=== PATIENT | female | born 1985 | race Caucasian/White ===

== ENCOUNTER 2021-08-23 11:04 | Outpatient (REF) | payer OTHER, SELFPAY ==
[2021-08-24 09:26] LABS: BV Int Neg Control Negative (Negative); BV Int Pos Control Positive (Positive)
[2021-08-26 06:22] LABS: HPV mRNA E6/E7 rflx Not Detected (Not Detected)
== END 2021-08-23 11:05 | disposition home or self-care (01) ==
LOC: HO.LAB 11:04
PROVIDERS: Visit Provider Advanced Practice Midwife
DX: Z01.419 Encounter for gynecological examination (general) (routine) without abnormal findings (principal); Z11.51 Encounter for screening for human papillomavirus (HPV); Z20.2 Contact with and (suspected) exposure to infections with a predominantly sexual mode of transmission; Z97.5 Presence of (intrauterine) contraceptive device
CPT/HCPCS: 87480; 87510; 87624; 87660; 88142

== ENCOUNTER 2021-10-12 10:23 | Outpatient (REF) | payer OTHER, SELFPAY ==
--- NOTE | ~2021-10-12 | MM_ITS ---
EXAMINATION: MM SCREENING DIGITAL BREAST TOMOSYNTHESIS, BILATERAL CLINICAL INFORMATION: Screening. Asymptomatic. Age 36. No prior breast imaging. Family history breast cancer, mother, age of diagnosis not provided. The lifetime risk of breast cancer based on the Tyrer-Cuzick Model is 22%. COMPARISON: None (current study represents initial baseline exam). TECHNIQUE: Digital breast tomosynthesis is performed in both the craniocaudal and mediolateral oblique views along with computer-aided detection (CAD). Synthesized 2D images are generated from the tomosynthesis. FINDINGS: There are scattered areas of fibroglandular density (ACR BI-RADS breast composition Category b). Breast tissue composition borders on heterogeneously dense. There are no significant masses, abnormal calcifications, or other abnormalities. The axilla and skin contours are unremarkable. MM/MM tomosynthesis screening BI IMPRESSION: No mammographic evidence of malignancy. ASSESSMENT: BI-RADS 1: Negative RECOMMENDATION: -Routine annual mammography screening. -The lifetime risk of breast cancer based on the Tyrer-Cuzick Model is 22%. Additional annual adjunct screening with breast MRI may be of benefit in women with a risk score of 20% or greater. This patient's information was entered into a reminder system with a target due date for their next mammogram.
== END 2021-10-12 10:24 | disposition home or self-care (01) ==
LOC: HO.MAMMO 10:23
PROVIDERS: PCP Physician Assistant; Visit Provider Advanced Practice Midwife
DX: Z12.31 Encounter for screening mammogram for malignant neoplasm of breast (principal)
CPT/HCPCS: 77063; 77067

== ENCOUNTER 2021-12-31 07:02 | Outpatient (REF) | payer OTHER, SELFPAY ==
[2021-12-31 07:36] LABS: Hematocrit 41.6 % (37.0-47.0); Hemoglobin 14.1 g/dl (12.0-16.0); Mean Corpuscular HGB Conc 33.9 g/dl (31.0-35.0); Mean Corpuscular Hemoglobin 29.9 pg (27.0-33.0); Mean Corpuscular Volume 88.1 fL (80.0-98.0); Mean Platelet Volume 10.6 fL (9.4-12.3); Platelet Count 265 X10*3/uL (160-400); Red Blood Count 4.72 X10*6/uL (4.20-5.50); White Blood Count 7.4 X10*3/uL (4.8-10.8)
[2021-12-31 07:59] LABS: Alanine Aminotransferase 10 U/L (0-31); Albumin Level 4.2 g/dL (3.5-5.0); Alkaline Phosphatase 30 U/L (39-117); Anion Gap 12 (12-20); Aspartate Amino Transferase 13 U/L (5-31); Bilirubin Total 0.4 mg/dL (0.0-1.0); Blood Urea Nitrogen 14 mg/dL (9-16); Calcium 9.1 mg/dL (8.4-10.2); Carbon Dioxide 26 mmol/L (22-29); Chloride 106 mmol/L (96-108); Estimated Glomerular Filt Rate > 60; Glucose Fasting 94 mg/dL (60-99); Potassium 4.6 mmol/L (3.3-5.1); Sodium 139 mmol/L (135-145); Total Protein 6.7 g/dL (6.5-8.0)
[2021-12-31 08:22] LABS: TSH reflex Free T4 2.26 uIU/mL (0.32-4.0)
== END 2021-12-31 07:03 | disposition home or self-care (01) ==
LOC: HO.LAB 07:02
PROVIDERS: PCP Physician Assistant; Visit Provider Physician Assistant
DX: Z13.29 Encounter for screening for other suspected endocrine disorder (principal)
CPT/HCPCS: 36415; 80053; 84443; 85027

== ENCOUNTER 2022-10-31 10:04 | Outpatient (REF) | payer OTHER, SELFPAY ==
--- NOTE | ~2022-10-31 | MM_ITS ---
EXAMINATION: MM SCREENING DIGITAL BREAST TOMOSYNTHESIS, BILATERAL CLINICAL INFORMATION: Screening. Asymptomatic. The lifetime risk of breast cancer based on the Tyrer-Cuzick Model is 20%. COMPARISON: Mammography: 10/12/2021 (baseline) TECHNIQUE: Digital breast tomosynthesis is performed in both the craniocaudal and mediolateral oblique views along with computer-aided detection (CAD). Synthesized 2D images are generated from the tomosynthesis. FINDINGS: There are scattered areas of fibroglandular density (ACR BI-RADS breast composition Category b). There are no significant masses, abnormal calcifications, or other abnormalities. Parenchymal pattern is similar to prior studies. There is no developing density or architectural abnormality. Breast tissue composition borders on heterogeneously dense. The axilla and skin contours are unremarkable. No significant changes. MM/MM tomosynthesis screening BI IMPRESSION: No mammographic evidence of malignancy. ASSESSMENT: BI-RADS 1: Negative RECOMMENDATION: Routine annual mammography screening. This patient's information was entered into a reminder system with a target due date for their next mammogram.
== END 2022-10-31 10:05 | disposition home or self-care (01) ==
LOC: HO.MAMMO 10:04
PROVIDERS: PCP Physician Assistant; Visit Provider Physician Assistant
DX: Z12.31 Encounter for screening mammogram for malignant neoplasm of breast (principal)
CPT/HCPCS: 77063; 77067

== ENCOUNTER 2023-02-01 15:18 | Outpatient (AMB) | payer OTHER, SELFPAY ==
--- NOTE | 2023-02-01 15:19 | A.OFFPC_ITS ---
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 Accompanied by: Self / Same As Patient Allergies No Known Allergies [No Known Allergies*] Allergy (Verified 02/01/23 15:29) Medication List - Last Reconciled 02/01/23 by Kevin Ingram PA-C No Known Home Meds Tobacco use date assessed: 02/01/23 Dental Screening Dental Screen Date: 02/01/23 Did you have a dental visit in the last 12 months?: Yes Did you have a dental problem in the last 6 months where you did not have access to dental care?: No Was dental information given to patient?: Patient has dentist HPI Annual Exam HPI Details Patient is a 37-year-old female here today for routine annual physical.? Patient does not have any past medical history with the exception of a family history of breast cancer. Concern--> patient is concerned about her weight as she has gained over the last year. She attributes some of this due to grief from losing her father and eating habits. She also reports having a family history of hypothyroidism I would like her thyroid checked. Mammogram: Done in October of 2022 BI-RADS 1 Pulmonary Fellow:? Followed by a investment consultant, has had a PAP ( 08/2021) Vaccines: UTD with COVID vacc, did get FLu vaccine, UTD with Tdap. PFSH Medical History Hx of trauma Situational anxiety Family History Father Depression Chronic mental illness AAA (abdominal aortic aneurysm) Mother Diabetes mellitus Breast cancer Depression Chronic mental illness Cancer Maternal Grandmother Diabetes mellitus Breast cancer Maternal Grandfather Myocardial infarct Paternal Grandmother Myocardial infarct Social History Housing: House Alcohol intake: current Alcohol intake frequency: holidays/special occasions only Patient Tobacco Use Status: Never used Tobacco e-Cigarette/Vaping Use: Never Used service: No Current occupation: CORPORATE MANAGER M[employer] Gender identity: Female Cognitive needs: No Hearing needs: No Vision needs: No Female Reproductive History Menstrual Age of Menarche: 13 Questionnaire PHQ-9 Over the last 2 weeks, how often have you been bothered by any of the following problems? 1. Little interest or pleasure in doing things: not at all 2. Feeling down, depressed, or hopeless: not at all 3. Trouble falling or staying asleep, or sleeping too much: not at all 4. Feeling tired or having little energy: not at all 5. Poor appetite or overeating: not at all 6. Feeling bad about yourself - or that you are a failure or have let yourself or your family down: not at all 7. Trouble concentrating on things, such as reading the newspaper or watching television: not at all 8. Moving or speaking so slowly that other people could have noticed. Or the opposite - being so fidgety or restless that you have been moving around a lot more than usual: not at all 9. Thoughts that you would be better off or of hurting yourself in some way: not at all Total score: 0 Depression Screening Interpretation: Negative 74581 - PHQ-9 Billing: Yes Source: Developed by Drs. Anil King, Greta Abbott, Leo Turner and colleagues, with an educational yoly from [employer] Thrive Questionnaire Date Thrive assessed: 02/01/23 I am a: Patient What is your living situation today?: I have a steady place to live Within the past 12 months, did the food you bought not last and you didn't have the money to get more?: Never true Within the past 12 months, did you worry whether your food would run out before you got money to buy more?: Never true Do you have trouble paying for medicines?: No Do you have trouble getting transportation to medical appointments?: No Do you have trouble paying your heating and electricity bill?: No Do you have trouble taking care of your child, family member or friend?: No Do you have trouble with day-to-day activities such as bathing, preparing meals, shopping, managing finances, etc.?: No Are you currently unemployed and looking for a job?: No Are you interested in more education?: No Please select the resources that you would like help with: None Currently or been in a relationship where the following occur: no concerns reported LOUIE-7 AMB Questionnaire LOUIE-7 Date LOUIE - 7 assessed: 02/01/23 Feeling nervous, anxious, or on edge: 0 = Not at all Not being able to stop or control worryin = Not at all Worrying too much about different things: 0 = Not at all Trouble relaxin = Not at all Being so restless that it is hard to sit still: 0 = Not at all Becoming easily annoyed or irritable: 0 = Not at all Feeling afraid as if something awful might happen: 0 = Not at all Total LOUIE-7 score (0-4 normal; 5-9 mild; 10-14 moderate; 15-21 severe): 0 Source: Developed by Drs. Anil King, Greta Abbott, Leo Turner and colleagues, with an educational yoly from [employer] LOUIE-7 Assessment Billing LOUIE-7 Assessment Tool: LOUIE-7 Assessment 34130 Review of Systems Const Denies body aches, Denies chills, Denies excessive sweating, Denies fatigue, Denies fever(s) and Denies headache(s) Eyes Denies blurry vision ENT Denies dysphagia, Denies vertigo, Denies dizziness, Denies headache(s), Denies hearing loss and Denies tinnitus Card Denies chest pain, Denies chest pain with activity, Denies syncope, Denies irregular heart rhythm and Denies dyspnea Resp Denies chest congestion, Denies cough, Denies hemoptysis, Denies dyspnea and Denies wheezing GI Denies abdominal pain, Denies melena, Denies hematochezia, Denies coffee ground emesis, Denies dysphagia, Denies diarrhea, Denies nausea and Denies vomiting Denies urinary frequency, Denies dysuria, Denies urinary hesitancy and Denies urinary urgency Musc Denies arthralgias, Denies limited range of motion, Denies muscle cramps and Denies muscle weakness Skin/Breast Denies rash and Denies skin ulcer Neuro Denies Abnormal speech present, Denies confusion, Denies vertigo, Denies dizziness, Denies syncope, Denies headache(s), Denies memory loss and Denies seizure-like activity Psych Denies anxiety, Denies confusion, Denies depression, Denies memory loss, Denies panic attacks and Denies paranoia Endo Denies excessive sweating, Denies fatigue, Denies flushing, Denies polydipsia and Denies polyuria Aller/Immun Denies wheezing Physical exam (Primary Care) Vital Signs: Last Vital Signs Pulse 69 02/01/23 15:21 BP 110/62 02/01/23 15:21 Pulse Ox 99 02/01/23 15:21 Oxygen Delivery Method Room Air 02/01/23 15:21 BMI result Body Mass Index 29.1 Tobacco/Smoking Status: Tobacco use Status Tobacco use date assessed 02/01/23 02/01/23 15:24 Patient Tobacco Use Status Never used Tobacco 02/01/23 15:24 e-Cigarette/Vaping Use Never Used 02/01/23 15:24 PHQ-9: PHQ-9 Score PHQ-9: Total score 0 02/01/23 15:29 Depression Screening Interpretation: Negative Thrive Assessment: Date of Thrive Assessment Date Thrive assessed 02/01/23 02/01/23 15:24 Currently or been in a relationship where the following occur: no concerns reported Const Other: OVERWEIGHT General: cooperative, comfortable, no acute distress, alert and awake; No confusion Orientation/consciousness: oriented to person, oriented to place, patient oriented x3 and No confusion HENMT Head: Yes normocephalic Ears: external ears normal and TM's normal bilaterally Face and sinus: No sinus tenderness Mouth: Normal oral and palatal mucosa present and tongue normal Teeth and gingiva: dentition normal and gingiva normal Throat: Yes posterior oropharynx normal, Yes tonsils normal and Yes uvula midline Eyes Conjunctivae: conjunctivae normal Sclerae: sclerae normal Pupils: Equal, round and reactive pupils present EOM: EOMs intact bilaterally Direct Ophthalmoscopy: No no photophobia Neck Neck: Yes no lymphadenopathy, No tender and Yes no JVD Thyroid: Thyroid normal Carotids: no bruits Chest Chest palpation & inspection: no tenderness Resp Effort & Inspection: normal respiratory effort, no audible wheezes, not labored and no stridor Auscultation: no crackles, no rales, no rhonchi and no wheezes Cardio Jugular venous distension: no JVD Rate: regular rate, not bradycardic and not tachycardic Rhythm: regular rhythm Bruits: no carotid bruits Peripheral pulses: Peripheral pulses 2+ throughout GI Inspection: Yes normal to inspection, No abdominal wall ecchymosis and No visible herniation Palpation (GI): Soft to palpation, nontender, no guarding, not rigid and No hepatosplenomegaly present Auscultation: normoactive bowel sounds General: Yes no CVA tenderness Back/Spine/Pelvis Back: no CVA tenderness and No back tenderness Cervical Spine: cervical ROM normal Thoracic/Lumbar Spine: thoracic and lumbar spine normal to inspection, straight leg raise negative bilaterally, No thoraco-lumbar ROM limited and No lumbar spinal tenderness Skin Lesions: no lesions Rashes: no rashes Wounds: no wounds Neuro General: oriented to person, oriented to place, patient oriented x3, CN's II-XI intact bilaterally and No confusion Cranial nerves: Yes Equal, round and reactive pupils present and Yes Normal accommodation reflex present Cognition (Neuro): normal cognition Speech: No Abnormal speech present Gait exam (Neuro): Normal gait present Motor exam (neuro): 5/5 motor strength present throughout Extrem Right upper extremity: full ROM; no cyanosis Left upper extremity: full ROM; no cyanosis Right lower extremity: no edema Left lower extremity: no edema Psych Appearance: grossly normal Mental Status: mental status grossly normal Affect: normal affect Attitude: cooperative Thought process: Normal thought process present Assessment and Plan Assessment & Plan (1) Annual physical exam: Code(s): Z00.00 - Encounter for general adult medical examination without abnormal findings (2) Screening for diabetes mellitus (DM): Code(s): Z13.1 - Encounter for screening for diabetes mellitus (3) Family history of hypothyroidism: Code(s): Z83.49 - Family history of other endocrine, nutritional and metabolic diseases Plan: Patient reports a family history hypothyroidism. Reports her mom was diagnosed with both thyroid is med is 35. She is concerned about her thyroid would like it checked. (4) Overweight (BMI 25.0-29.9): Code(s): E66.3 - Overweight Plan: Patient is concerned about her weight as she has gained 3 lb since last annual physical. She does report not eating much in the morning time needs bigger meals in the afternoon. She does understand she needs to change the pattern of eating. She does report working out 3 to 4 times a week and eating fairly healthy. She is concerned she has a hormonal issue causing her to gain weight. Orders: Orders Comprehensive Mobile. Panel Fast 02/03/23 Z13.1 - Encounter for screening for diabetes mellitus TSH reflex Free T4 02/03/23 Z83.49 - Family history of other endocrine, nutritional and metabolic diseases Complete Blood Count no Diff 02/03/23 Z13.1 - Encounter for screening for diabetes mellitus Coding Level of Care Code Est Pt Prev Care [id number]([id number]) Diagnoses Annual physical exam Z00.00 Screening for diabetes mellitus (DM) Z13.1 Family history of hypothyroidism Z83.49 Overweight (BMI 25.0-29.9) E66.3 Additional Codes LOUIE-7 Assessment Billing - LOUIE-7 Assessment Tool: LOUIE-7 Assessment [id number] ([id number])
[2023-02-01 15:21] VITALS: BP 110/62; PULSE 69; O2SAT 99; BMI 29.1
== END 2023-02-01 15:52 | disposition home or self-care (01) ==
PROVIDERS: PCP Physician Assistant; Visit Provider Physician Assistant
DX: Z00.00 Encounter for general adult medical examination without abnormal findings (principal); Z13.1 Encounter for screening for diabetes mellitus; Z83.49 Family history of other endocrine, nutritional and metabolic diseases; E66.3 Overweight
CPT/HCPCS: 99395

== ENCOUNTER 2023-02-03 07:11 | Outpatient (REF) | payer OTHER, SELFPAY ==
[2023-02-03 07:35] LABS: Hematocrit 44.2 % (37.0-47.0); Hemoglobin 14.9 g/dl (12.0-16.0); Mean Corpuscular HGB Conc 33.7 g/dl (31.0-35.0); Mean Corpuscular Hemoglobin 29.8 pg (27.0-33.0); Mean Corpuscular Volume 88.4 fL (80.0-98.0); Mean Platelet Volume 10.5 fL (9.4-12.3); Platelet Count 262 X10*3/uL (160-400); Red Cell Distribution Width 11.9 % (11.0-16.0); White Blood Count 6.7 X10*3/uL (4.8-10.8)
[2023-02-03 08:01] LABS: Alanine Aminotransferase 10 U/L (0-31); Albumin Level 4.2 g/dL (3.5-5.0); Alkaline Phosphatase 29 U/L (39-117); Anion Gap 10 (12-20); Aspartate Amino Transferase 12 U/L (5-31); Bilirubin Total 0.5 mg/dL (0.0-1.0); Blood Urea Nitrogen 18 mg/dL (9-16); Calcium 9.1 mg/dL (8.4-10.2); Carbon Dioxide 27 mmol/L (22-29); Chloride 108 mmol/L (96-108); Estimated Glomerular Filt Rate > 60; Glucose Fasting 90 mg/dL (60-99); Potassium 4.7 mmol/L (3.3-5.1); Sodium 140 mmol/L (135-145)
[2023-02-03 08:19] LABS: TSH reflex Free T4 3.42 uIU/mL (0.32-4.0)
== END 2023-02-03 07:12 | disposition home or self-care (01) ==
LOC: HO.LAB 07:11
PROVIDERS: PCP Physician Assistant; Visit Provider Physician Assistant
DX: Z13.1 Encounter for screening for diabetes mellitus (principal); Z83.49 Family history of other endocrine, nutritional and metabolic diseases
CPT/HCPCS: 36415; 80053; 84443; 85027

== ENCOUNTER 2023-11-07 09:53 | Outpatient (REF) | payer OTHER, SELFPAY ==
--- NOTE | ~2023-11-07 | MM_ITS ---
EXAMINATION: MM SCREENING DIGITAL BREAST TOMOSYNTHESIS, BILATERAL CLINICAL INFORMATION: Screening. Asymptomatic. COMPARISON: Mammography: This study is compared with prior exams dating back to 2021. TECHNIQUE: Digital breast tomosynthesis is performed in both the craniocaudal and mediolateral oblique views along with computer-aided detection (CAD). Synthesized 2D images are generated from the tomosynthesis. FINDINGS: The breasts are heterogeneously dense, which may obscure small masses (ACR BI-RADS breast composition Category c). There are no significant masses, abnormal calcifications, or other abnormalities. MM/MM tomosynthesis screening BI IMPRESSION: No mammographic evidence of malignancy. ASSESSMENT: BI-RADS BI-RADS 1 - Negative RECOMMENDATION: Routine annual mammography screening. 1 year F/U This examination should not preclude the clinical evaluation of a suspicious palpable abnormality. This patient's information was entered into a reminder system with a target due date for their next mammogram.
== END 2023-11-07 09:54 | disposition home or self-care (01) ==
LOC: HO.MAMMO 09:53
PROVIDERS: PCP Physician Assistant; Visit Provider Physician Assistant
DX: Z12.31 Encounter for screening mammogram for malignant neoplasm of breast (principal)
CPT/HCPCS: 77063; 77067

== ENCOUNTER → 2023-11-07 10:00 | Outpatient (BNV) | payer OTHER, SELFPAY | PROVIDERS: PCP Physician Assistant; Visit Provider Radiology Diagnostic Radiology | DX: Z12.31 Encounter for screening mammogram for malignant neoplasm of breast (principal) | CPT/HCPCS: 77063; 77067 ==

== ENCOUNTER 2024-02-13 13:19 | Outpatient (AMB) | payer OTHER, SELFPAY ==
--- NOTE | 2024-02-13 13:22 | MHC.PC.OV ---
Vital Signs 02/13/24 13:34 Height 5 ft 4 in Weight 158 lb BMI 27.1 BP 110/70 Blood Pressure Location Lt brachial Position Sitting Pulse 76 Pulse Source Pulse Oximeter Pulse Oximetry (%) 99 Oxygen Delivery Method Room Air Intake Visit Reasons: Annual Exam Intake Note: Patient is here today for a physical. Reproduction Order Processor Required: No Accompanied by: Daughter Allergies No Known Allergies [No Known Allergies*] Allergy (Verified 02/13/24 13:59) Medication List - Last Reconciled 02/13/24 by Kevin Ingram PA-C No Known Home Meds Tobacco use date assessed: 02/13/24 Dental Screening Dental Screen Date: 02/13/24 Did you have a dental visit in the last 12 months?: Yes Did you have a dental problem in the last 6 months where you did not have access to dental care?: No Was dental information given to patient?: Patient has dentist HPI Annual Exam HPI Details Patient is a 38 year-old female here today for routine annual physical.? Patient does not have any past medical history with the exception of a family history of breast cancer. Concern--> has noted weight loss over the last month unintentional, does report she has been eating card cleaner and has been doing yoga.. Otherwise denies any fatigue, nausea vomiting diarrhea ect.. Actually she reports she feels great. Mammogram: Done in October of 2023 BI-RADS 1-has family history of breast cancer Dental Hygiene Administrative Assistant:? Followed by a director compliance, has had a PAP ( 08/2021) Vaccines: UTD with COVID vacc, did get FLu vaccine, UTD with Tdap. PFSH Medical History Hx of trauma Situational anxiety Family History Father Depression Chronic mental illness AAA (abdominal aortic aneurysm) Mother Diabetes mellitus Breast cancer Depression Chronic mental illness Cancer Maternal Grandmother Diabetes mellitus Breast cancer Maternal Grandfather Myocardial infarct Paternal Grandmother Myocardial infarct Social History (Updated 02/13/24 @ 14:02 by Kevin Ingram PA-C) Housing: House Alcohol intake: current Alcohol intake frequency: holidays/special occasions only Patient Tobacco Use Status: Never used Tobacco e-Cigarette/Vaping Use: Never Used service: No Current occupational status: employed Current occupation: [employer] Gender identity: Female Cognitive needs: No Hearing needs: No Vision needs: No Female Reproductive History Menstrual Age of Menarche: 13 Questionnaire PHQ-9 Over the last 2 weeks, how often have you been bothered by any of the following problems? 1. Little interest or pleasure in doing things: not at all 2. Feeling down, depressed, or hopeless: not at all 3. Trouble falling or staying asleep, or sleeping too much: not at all 4. Feeling tired or having little energy: not at all 5. Poor appetite or overeating: not at all 6. Feeling bad about yourself - or that you are a failure or have let yourself or your family down: not at all 7. Trouble concentrating on things, such as reading the newspaper or watching television: not at all 8. Moving or speaking so slowly that other people could have noticed. Or the opposite - being so fidgety or restless that you have been moving around a lot more than usual: not at all 9. Thoughts that you would be better off or of hurting yourself in some way: not at all Total score: 0 Depression Screening Interpretation: Negative Depression Screening Done: Yes 04242 - PHQ-9 Billing: Yes Source: Developed by Drs. Anil King, Greta Abbott, Leo Turner and colleagues, with an educational yoly from [employer]. Thrive Questionnaire Date Thrive assessed: 02/13/24 I am a: Patient What is your living situation today?: I have a steady place to live Within the past 12 months, did the food you bought not last and you didn't have the money to get more?: Never true Within the past 12 months, did you worry whether your food would run out before you got money to buy more?: Never true Do you have trouble paying for medicines?: No Do you have trouble getting transportation to medical appointments?: No Do you have trouble paying your heating and electricity bill?: No Do you have trouble taking care of your child, family member or friend?: No Do you have trouble with day-to-day activities such as bathing, preparing meals, shopping, managing finances, etc.?: No Are you currently unemployed and looking for a job?: No Are you interested in more education?: No Please select the resources that you would like help with: None Currently or been in a relationship where the following occur: No concerns reported THRIVE Score: 0 AUDIT C Alcohol Use Questionnaire (AUDIT-C) 1. How often do you have a drink containing alcohol?: Monthly or less 2. How many drinks containing alcohol do you have on a typical day when you are drinking?: 1 or 2 3. How often do you have six or more drinks on one occasion?: Never Total Score: 1 LOUIE-7 AMB Questionnaire LOUIE-7 Date LOUIE - 7 assessed: 02/13/24 Feeling nervous, anxious, or on edge: 0 = Not at all Not being able to stop or control worryin = Not at all Worrying too much about different things: 0 = Not at all Trouble relaxin = Not at all Being so restless that it is hard to sit still: 0 = Not at all Becoming easily annoyed or irritable: 0 = Not at all Feeling afraid as if something awful might happen: 0 = Not at all Total LOUIE-7 score (0-4 normal; 5-9 mild; 10-14 moderate; 15-21 severe): 0 Source: Developed by Drs. Anil King, Greta Abbott, Leo Turner and colleagues, with an educational yoly from [employer]. LOUIE-7 Assessment Billing LOUIE-7 Assessment Tool: LOUIE-7 Assessment 22894 Review of Systems Const Denies body aches, Denies chills, Denies excessive sweating, Denies fatigue, Denies fever(s) and Denies headache(s) Eyes Denies blurry vision ENT Denies dysphagia, Denies vertigo, Denies dizziness, Denies headache(s), Denies hearing loss and Denies tinnitus Card Denies chest pain, Denies chest pain with activity, Denies syncope, Denies irregular heart rhythm and Denies dyspnea Resp Denies chest congestion, Denies cough, Denies hemoptysis, Denies dyspnea and Denies wheezing GI Denies abdominal pain, Denies melena, Denies hematochezia, Denies coffee ground emesis, Denies dysphagia, Denies diarrhea, Denies nausea and Denies vomiting Denies urinary frequency, Denies dysuria, Denies urinary hesitancy and Denies urinary urgency Musc Denies arthralgias, Denies limited range of motion, Denies muscle cramps and Denies muscle weakness Skin/Breast Denies rash and Denies skin ulcer Neuro Denies Abnormal speech present, Denies confusion, Denies vertigo, Denies dizziness, Denies syncope, Denies headache(s), Denies memory loss and Denies seizure-like activity Psych Denies anxiety, Denies confusion, Denies depression, Denies memory loss, Denies panic attacks and Denies paranoia Endo Denies excessive sweating, Denies fatigue, Denies flushing, Denies polydipsia and Denies polyuria Aller/Immun Denies wheezing Physical exam (Primary Care) Vital Signs: Last Vital Signs Pulse 76 02/13/24 13:34 BP 110/70 02/13/24 13:34 Pulse Ox 99 02/13/24 13:34 Oxygen Delivery Method Room Air 02/13/24 13:34 BMI result Body Mass Index 27.1 Tobacco/Smoking Status: Tobacco use Status Tobacco use date assessed 02/13/24 02/13/24 13:40 Patient Tobacco Use Status Never used Tobacco 02/13/24 13:22 e-Cigarette/Vaping Use Never Used 02/13/24 13:22 PHQ-9: PHQ-9 Score PHQ-9: Total score 0 02/13/24 13:27 Depression Screening Interpretation: Negative Thrive Assessment: Date of Thrive Assessment Date Thrive assessed 02/13/24 02/13/24 13:27 Currently or been in a relationship where the following occur: No concerns reported Const General: cooperative, comfortable, no acute distress, alert and awake; No confusion Orientation/consciousness: oriented to person, oriented to place, patient oriented x3 and No confusion HENMT Head: Yes normocephalic Ears: external ears normal and TM's normal bilaterally Face and sinus: No sinus tenderness Mouth: Normal oral and palatal mucosa present and tongue normal Teeth and gingiva: dentition normal and gingiva normal Throat: Yes posterior oropharynx normal, Yes tonsils normal and Yes uvula midline Eyes Conjunctivae: conjunctivae normal Sclerae: sclerae normal Pupils: Equal, round and reactive pupils present EOM: EOMs intact bilaterally Direct Ophthalmoscopy: No no photophobia Neck Neck: Yes no lymphadenopathy, No tender and Yes no JVD Thyroid: Thyroid normal Carotids: no bruits Chest Chest palpation & inspection: no tenderness Resp Effort & Inspection: normal respiratory effort, no audible wheezes, not labored and no stridor Auscultation: no crackles, no rales, no rhonchi and no wheezes Cardio Jugular venous distension: no JVD Rate: regular rate, not bradycardic and not tachycardic Rhythm: regular rhythm Bruits: no carotid bruits Peripheral pulses: Peripheral pulses 2+ throughout GI Inspection: Yes normal to inspection, No abdominal wall ecchymosis and No visible herniation Palpation (GI): Soft to palpation, nontender, no guarding, not rigid and No hepatosplenomegaly present Auscultation: normoactive bowel sounds General: Yes no CVA tenderness Back/Spine/Pelvis Back: no CVA tenderness and No back tenderness Cervical Spine: cervical ROM normal Thoracic/Lumbar Spine: thoracic and lumbar spine normal to inspection, straight leg raise negative bilaterally, No thoraco-lumbar ROM limited and No lumbar spinal tenderness Skin Lesions: no lesions Rashes: no rashes Wounds: no wounds Neuro General: oriented to person, oriented to place, patient oriented x3, CN's II-XI intact bilaterally and No confusion Cranial nerves: Yes Equal, round and reactive pupils present and Yes Normal accommodation reflex present Cognition (Neuro): normal cognition Speech: No Abnormal speech present Gait exam (Neuro): Normal gait present Motor exam (neuro): 5/5 motor strength present throughout Extrem Right upper extremity: full ROM; no cyanosis Left upper extremity: full ROM; no cyanosis Right lower extremity: no edema Left lower extremity: no edema Psych Appearance: grossly normal Mental Status: mental status grossly normal Affect: normal affect Attitude: cooperative Thought process: Normal thought process present Assessment and Plan Assessment & Plan (1) Annual physical exam: Code(s): Z00.00 - Encounter for general adult medical examination without abnormal findings (2) Screening for diabetes mellitus (DM): Code(s): Z13.1 - Encounter for screening for diabetes mellitus (3) Family history of hypothyroidism: Code(s): Z83.49 - Family history of other endocrine, nutritional and metabolic diseases Plan: Patient reports a family history hypothyroidism. Reports her mom was diagnosed with both thyroid is med is 35. She is concerned about her thyroid would like it checked. Orders: Orders Complete Blood Count no Diff Today Z13.1 - Encounter for screening for diabetes mellitus TSH reflex Free T4 Today Z83.49 - Family history of other endocrine, nutritional and metabolic diseases Comprehensive [place]. Panel Fast Today Z13.1 - Encounter for screening for diabetes mellitus Coding Level of Care Code Est Pt Prev Care 18-39y(15244) Diagnoses Annual physical exam Z00.00 Screening for diabetes mellitus (DM) Z13.1 Family history of hypothyroidism Z83.49 Additional Codes LOUIE-7 Assessment Billing - LOUIE-7 Assessment Tool: LOUIE-7 Assessment 64093 ([id number])
[2024-02-13 13:34] VITALS: BP 110/70; PULSE 76; O2SAT 99; BMI 27.1
== END 2024-02-13 14:09 | disposition home or self-care (01) ==
PROVIDERS: PCP Physician Assistant; Visit Provider Physician Assistant
DX: Z00.00 Encounter for general adult medical examination without abnormal findings (principal); Z13.1 Encounter for screening for diabetes mellitus; Z83.49 Family history of other endocrine, nutritional and metabolic diseases
CPT/HCPCS: 99395

== ENCOUNTER → 2024-11-13 10:00 | Outpatient (BNV) | payer OTHER, SELFPAY | PROVIDERS: PCP Physician Assistant; Visit Provider Internal Medicine | DX: Z12.31 Encounter for screening mammogram for malignant neoplasm of breast (principal) | CPT/HCPCS: 77063; 77067 ==

== ENCOUNTER 2024-11-13 10:07 | Outpatient (REF) | payer OTHER, SELFPAY ==
--- OUTSIDE RECORDS SUMMARY | 2024-11-13 10:29 | XMS_ITS | Clinical Summary ---
Author Organization [facility] [employer] [facility] lin Address [address] [place] [address] Care Team Providers Care House Cleaner Supervisor Name Role Phone No, Pcp BAT CARRIER Primary Care Provider Unavailabl e Allergies No known active allergies Medications norgestimate-eth inyl estradiol (ORTHO TRI-CYCLEN,LUBNA SSA) 0.18/0.215/0.25 mg-35 mcg (28) tablet Take 1 tablet by mouth daily. 28 tablet 3 08/31/2016 Active Social History Tobacco Use Types Packs/Day Years Used Date Smoking Tobacco: Never Smokeless Tobacco: Never Comments No Sex and Gender Information Value Date Recorded Sex Assigned at Not on file Legal Sex Female 2:25 PM EST Gender Identity Not on file Sexual Orientation Not on file Last Filed Vital Signs Vital Sign Reading Time Taken Comments Blood Pressure 110/80 08/31/2016 3:12 PM EST Pulse 75 08/31/2016 3:12 PM EST Temperature 37.1 ??C (98.7 ??F) 08/31/2016 3:12 PM ES T Respiratory Rate 14 08/31/2016 3:12 PM EST Oxygen Saturation 98% 08/31/2016 3:12 PM EST Inhaled Oxygen Concentration - - Weight - - Height - - Body Mass Index - - Plan of Treatment Health Maintenance Due Date Last Done Comments Depression: Screening Annual ly using PHQ-2/9 in Adults 18 yrs or above (or HM Modifier)([facility]) 10/04/2003 Hepatitis C Virus Infection in Adolescents and Adults: Screening (or Modifier) ([facility]) 10/04/2003 SDOH Screening Reminder: Olivia perez for all adults ([facility]) 10/04/2003 Tobacco Smoking Cessation: i n Adults excluding Women: Behavioral and Pharmacotherapy Interventions ([facility]) 10/04/2003 DTaP/Tdap/Td Vaccines ([facility]) (1 - Tdap) 2004 zzRETIRED Lipid Screening: O nce for Women aged 20 to 45 yrs ([facility]) 2005 Cervical Cancer Screenin 1-65 yrs of age (or Modifier) 2006 Cervical Cancer Screening: P ap every 3 yrs pts age 21-65 2006 Cervical Cancer: Pap Screeni ng with Modifier timing ([facility]) 2006 Cervical Cancer: hrHPV alone or with cotesting Pap for Pts 30-65yrs screening every 5yrs ([facility]) 2006 COVID-19 Vaccine Screening: Initial Series and Booster Status ([facility]) (2023- season) 2024 Flu Vaccination: Yearly for ages 18mos through 64 years (or Modifier)([facility]) 01/23/2025 Zoster/Shingles Vaccine Seri es Screening: Adults aged 18+ yrs (or HM Modifiers)([facility]) (1 of 2) 10/04/2035 Pneumococcal Vaccination Scr eening: Pts 0-19 & 19-49 yrs of age ([facility]) Aged Out No longer eligible based on patient's age to complete this topic Medical Devices Not on file Insurance [facility] [employer] Care Teams House Cleaner Supervisor Relationship Specialty Start Date End Date No, Pcp, BAT CARRIER N/A Do not use PCP - General 08/31/16
== END 2024-11-13 10:08 | disposition home or self-care (01) ==
LOC: HO.MAMMO 10:07
PROVIDERS: PCP Physician Assistant; Visit Provider Physician Assistant
DX: Z12.31 Encounter for screening mammogram for malignant neoplasm of breast (principal)
CPT/HCPCS: 77063; 77067

== ENCOUNTER 2025-01-07 13:25 | Outpatient (REF) | payer OTHER, SELFPAY ==
--- NOTE | ~2025-01-07 | US_ITS ---
EXAMINATION: MM DIAGNOSTIC DIGITAL BREAST TOMOSYNTHESIS, RIGHT Limited right breast ultrasound. CLINICAL INFORMATION: Call back from screening for focal asymmetry in the upper outer right breast. COMPARISON: Mammography: There is on PACS. TECHNIQUE: Digital breast tomosynthesis is performed in both the craniocaudal and mediolateral oblique views along with computer-aided detection (CAD). Synthesized 2D images are generated from the tomosynthesis. FINDINGS: The breasts are heterogeneously dense, which may obscure small masses (ACR BI-RADS breast composition Category c). Focal asymmetry in the upper outer breast persists is a circumscribed oval mass. There are no significant masses, abnormal calcifications, or other abnormalities. Targeted color Doppler ultrasound scanning in the right breast from 7-11 o'clock demonstrates 2 simple to minimally complicated cyst at 9:00 2 cm from the nipple measuring 8 x 6 x 9 mm and an adjacent 9 mm minimally complicated cyst. These cysts correlate with the focal asymmetry on mammography and are benign. Otherwise scanning from 7-11 o'clock demonstrates normal fibroglandular breast tissue. US/US breast RT limited mamm only IMPRESSION: Simple to minimally complicated cysts on ultrasound. Benign. Patient has a strong family history of breast cancer breast MRI yearly screening should be considered for further evaluation. Breast MRI would need to be ordered by the patient's providing clinician. ASSESSMENT: BI-RADS BI-RADS 2 - Benign Findings RECOMMENDATION: 1 year F/U Results were provided to the patient at time of visit by the technologist. This patient's information was entered into a reminder system with a target due date for their next mammogram. Electronically signed by: Belinda Maya DO 01/07/2025 02:25 PM EDT
--- OUTSIDE RECORDS SUMMARY | 2025-01-07 14:12 | XMS_ITS | Clinical Summary ---
Author Organization [facility] [employer] [facility] lin Address [address] [place] [address] Care Team Providers Care Blindstitch Hemmer Name Role Phone No, Pcp MOLD WASHER Primary Care Provider Unavailabl e Allergies No [...] 75 08/31/2016 3:12 PM EST Temperature 37.1 C (98.7 F) 08/31/2016 3:12 PM EST Respiratory Rate 14 08/31/2016 3:12 PM EST Oxygen Saturation 98% 08/31/2016 3:12 PM EST Inhaled Oxygen Concentration - - Weight - - Height - - Body Mass Index - - Plan of Treatment Health Maintenance Due Date Last Done Comments Depression: Screening Annual ly using PHQ-2/9 in Adults 18 yrs or above (or HM Modifier)([facility]) 10/04/2003 Hepatitis C Virus Infection in Adolescents and Adults: Screening (or Modifier) ([facility]) 10/04/2003 SDOH Screening Reminder: Olivia perez for all adults ([facility]) 10/04/2003 Tobacco Smoking Cessation: i n Adults excluding Women: Behavioral and Pharmacotherapy Interventions ([facility]) 10/04/2003 DTaP/Tdap/Td Vaccines ([facility]) (1 - Tdap) 2004 Cervical Cancer Screenin 1-65 yrs of age (or Modifier) 2006 Cervical Cancer Screening: P ap every 3 yrs pts age 21-65 2006 Cervical Cancer: Pap Screeni ng with Modifier timing ([facility]) 2006 Cervical Cancer: hrHPV alone or with cotesting Pap for Pts 30-65yrs screening every 5yrs ([facility] ) 2006 COVID-19 Vaccine Screening: Initial Series and Booster Status ([facility]) ( - 2023- season) 2024 Flu Vaccination: Yearly for ages 18mos through 64 years (or Modifier)([facility] ) 01/23/2025 Zoster/Shingles Vaccine Seri es Screening: Adults aged 18+ yrs (or HM Modifiers)([facility] ) (1 of 2) 10/04/2035 Pneumococcal Vaccination Scr eening: Pts 0-19 & 19-49 yrs of age ([facility] ) Aged Out No longer eligible based on patient's age to complete this topic Medical Devices Not on file Insurance [facility] [employer] Care Teams Blindstitch Hemmer Relationship Specialty Start Date End Date No, Pcp, MOLD WASHER N/A Do not use PCP - General 08/31/16
== END 2025-01-07 13:26 | disposition home or self-care (01) ==
LOC: HO.MAMMO 13:25
PROVIDERS: PCP Physician Assistant; Visit Provider Physician Assistant
DX: N64.89 Other specified disorders of breast (principal)
CPT/HCPCS: 76642; 77061; 77065

== ENCOUNTER → 2025-01-07 13:30 | Outpatient (BNV) | payer OTHER, SELFPAY | PROVIDERS: PCP Physician Assistant; Visit Provider Internal Medicine | DX: N60.11 Diffuse cystic mastopathy of right breast (principal) | CPT/HCPCS: 76642; 77061; 77065 ==

== ENCOUNTER 2025-02-16 11:30 | Outpatient (AMB) | payer OTHER, SELFPAY ==
--- NOTE | 2025-02-16 11:55 | MHC.PC.OV ---
Vital Signs 02/16/25 11:58 Height 5 ft 4 in Weight 165 lb 2 oz BMI 28.3 BP 100/60 Blood Pressure Location Lt brachial Position Sitting Pulse 73 Pulse Source Pulse Oximeter Temp 97.3 F Temp Source Temporal Artery Scan Pulse Oximetry (%) 100 Oxygen Delivery Method Room Air Intake Visit Reasons: Annual Exam Intake Note: Patient is here today for a physical. Dispatcher Relay Required: No Head Setter: Not Required per policy Accompanied by: Self / Same As Patient Allergies No Known Allergies (No Known Allergies*) Allergy (Verified 02/16/25 12:13) Medication List - Last Reconciled 02/16/25 by Kevin Ingram PA-C No Known Home Meds Tobacco use date assessed: 02/16/25 Dental Screening Dental Screen Date: 02/16/25 Did you have a dental visit in the last 12 months?: Yes Did you have a dental problem in the last 6 months where you did not have access to dental care?: No Was dental information given to patient?: Patient has dentist HPI Annual Exam HPI Details Patient is a 38 year-old female here today for routine annual physical.? Patient does not have any past medical history with the exception of a family history of breast cancer. Concern--> The patient has a history of breast cysts, which were determined to be benign following an ultrasound. Due to breast density and a strong family history of breast cancer, she has been advised to undergo regular breast MRIs. The patient reports a localized reaction to an insect sting, which occurred recently and resulted in itching and mild discomfort. She was advised to use hydrocortisone cream for symptomatic relief. Mammogram: Done in 2024 BI-RADS 1-has family history of breast cancer- requesting breast MRI Cloth Spreader:? Followed by a restaurant kitchen manager, has had a PAP ( 08/2021) - overdue for Pap screening, she will call up [place] restaurant kitchen manager for appointment. Vaccines: , UTD with Tdap. Considering flu vaccine PFSH Medical History Hx of trauma Situational anxiety Surgical History No pertinent past surgical history Family History Father Depression Chronic mental illness AAA (abdominal aortic aneurysm) Mental health disorder Mother Diabetes mellitus Breast cancer Depression Chronic mental illness Cancer Mental health disorder Maternal Grandmother Diabetes mellitus Breast cancer Maternal Grandfather Myocardial infarct Paternal Grandmother Myocardial infarct Social History (Updated 02/16/25 @ 12:17 by Kevin Ingram PA-C) Housing: House Alcohol intake: former Patient Tobacco Use Status: Never used Tobacco e-Cigarette/Vaping Use: Never Used Second Hand Smoke Exposure: No service: No Current occupational status: employed Current occupation: [employer] Gender identity: Female Cognitive needs: No Hearing needs: No Vision needs: No Female Reproductive History Menstrual Age of Menarche: 13 Questionnaire PHQ-9 Over the last 2 weeks, how often have you been bothered by any of the following problems? 1. Little interest or pleasure in doing things: not at all 2. Feeling down, depressed, or hopeless: not at all 3. Trouble falling or staying asleep, or sleeping too much: not at all 4. Feeling tired or having little energy: not at all 5. Poor appetite or overeating: not at all 6. Feeling bad about yourself - or that you are a failure or have let yourself or your family down: not at all 7. Trouble concentrating on things, such as reading the newspaper or watching television: not at all 8. Moving or speaking so slowly that other people could have noticed. Or the opposite - being so fidgety or restless that you have been moving around a lot more than usual: not at all 9. Thoughts that you would be better off or of hurting yourself in some way: not at all Total score: 0 Depression Screening Interpretation: Negative Depression Screening Done: Yes 27643 - PHQ-9 Billing: Yes Source: Developed by Drs. Anil King, Greta Abbott, Leo Turner and colleagues, with an educational yoly from [employer]. Thrive Questionnaire Date Thrive assessed: 02/16/25 I am a: Patient What is your living situation today?: I have a steady place to live Within the past 12 months, did the food you bought not last and you didn't have the money to get more?: Never true Within the past 12 months, did you worry whether your food would run out before you got money to buy more?: Never true Do you have trouble paying for medicines?: No Do you have trouble getting transportation to medical appointments?: No Do you have trouble paying your heating and electricity bill?: No Do you have trouble taking care of your child, family member or friend?: No Do you have trouble with day-to-day activities such as bathing, preparing meals, shopping, managing finances, etc.?: No Are you currently unemployed and looking for a job?: No Are you interested in more education?: No Please select the resources that you would like help with: None Currently or been in a relationship where the following occur: No concerns reported THRIVE Score: 0 AUDIT C Alcohol Use Questionnaire (AUDIT-C) 1. How often do you have a drink containing alcohol?: Never Total Score: 0 LOUIE-7 AMB Questionnaire LOUIE-7 Date LOUIE - 7 assessed: 02/16/25 Feeling nervous, anxious, or on edge: 0 = Not at all Not being able to stop or control worryin = Not at all Worrying too much about different things: 0 = Not at all Trouble relaxin = Not at all Being so restless that it is hard to sit still: 0 = Not at all Becoming easily annoyed or irritable: 0 = Not at all Feeling afraid as if something awful might happen: 0 = Not at all Total LOUIE-7 score (0-4 normal; 5-9 mild; 10-14 moderate; 15-21 severe): 0 Source: Developed by Drs. Anil King, Greta Abbott, Leo Turner and colleagues, with an educational yoly from [employer]. LOUIE-7 Assessment Billing LOUIE-7 Assessment Tool: LOUIE-7 Assessment 16408 Review of Systems Const Denies body aches, Denies chills, Denies excessive sweating, Denies fatigue, Denies fever(s) and Denies headache(s) Eyes Denies blurry vision ENT Denies dysphagia, Denies vertigo, Denies dizziness, Denies headache(s), Denies hearing loss and Denies tinnitus Card Denies chest pain, Denies chest pain with activity, Denies syncope, Denies irregular heart rhythm and Denies dyspnea Resp Denies chest congestion, Denies cough, Denies hemoptysis, Denies dyspnea and Denies wheezing GI Denies abdominal pain, Denies melena, Denies hematochezia, Denies coffee ground emesis, Denies dysphagia, Denies diarrhea, Denies nausea and Denies vomiting Denies urinary frequency, Denies dysuria, Denies urinary hesitancy and Denies urinary urgency Musc Denies arthralgias, Denies limited range of motion, Denies muscle cramps and Denies muscle weakness Skin/Breast Denies rash and Denies skin ulcer Neuro Denies Abnormal speech present, Denies confusion, Denies vertigo, Denies dizziness, Denies syncope, Denies headache(s), Denies memory loss and Denies seizure-like activity Psych Denies anxiety, Denies confusion, Denies depression, Denies memory loss, Denies panic attacks and Denies paranoia Endo Denies excessive sweating, Denies fatigue, Denies flushing, Denies polydipsia and Denies polyuria Aller/Immun Denies wheezing Physical exam (Primary Care) Vital Signs: Last Vital Signs Temp 97.3 F 02/16/25 11:58 Pulse 73 02/16/25 11:58 BP 100/60 02/16/25 11:58 Pulse Ox 100 02/16/25 11:58 Oxygen Delivery Method Room Air 02/16/25 11:58 BMI result Body Mass Index 28.3 Tobacco/Smoking Status: Tobacco use Status Tobacco use date assessed 02/16/25 02/16/25 12:01 Patient Tobacco Use Status Never used Tobacco 02/16/25 12:17 e-Cigarette/Vaping Use Never Used 02/16/25 12:17 PHQ-9: PHQ-9 Score PHQ-9: Total score 0 02/16/25 12:15 Depression Screening Interpretation: Negative Thrive Assessment: Date of Thrive Assessment Date Thrive assessed 02/16/25 02/16/25 12:01 Currently or been in a relationship where the following occur: No concerns reported Const General: cooperative, comfortable, no acute distress, alert and awake; No confusion Orientation/consciousness: oriented to person, oriented to place, patient oriented x3 and No confusion HENMT Head: Yes normocephalic Ears: external ears normal and TM's normal bilaterally Face and sinus: No sinus tenderness Mouth: Normal oral and palatal mucosa present and tongue normal Teeth and gingiva: dentition normal and gingiva normal Throat: Yes posterior oropharynx normal, Yes tonsils normal and Yes uvula midline Eyes Conjunctivae: conjunctivae normal Sclerae: sclerae normal Pupils: Equal, round and reactive pupils present EOM: EOMs intact bilaterally Direct Ophthalmoscopy: No no photophobia Neck Neck: Yes no lymphadenopathy, No tender and Yes no JVD Thyroid: Thyroid normal Carotids: no bruits Chest Chest palpation & inspection: no tenderness Resp Effort & Inspection: normal respiratory effort, no audible wheezes, not labored and no stridor Auscultation: no crackles, no rales, no rhonchi and no wheezes Cardio Jugular venous distension: no JVD Rate: regular rate, not bradycardic and not tachycardic Rhythm: regular rhythm Bruits: no carotid bruits Peripheral pulses: Peripheral pulses 2+ throughout GI Inspection: Yes normal to inspection, No abdominal wall ecchymosis and No visible herniation Palpation (GI): Soft to palpation, nontender, no guarding, not rigid and No hepatosplenomegaly present Auscultation: normoactive bowel sounds General: Yes no CVA tenderness Back/Spine/Pelvis Back: no CVA tenderness and No back tenderness Cervical Spine: cervical ROM normal Thoracic/Lumbar Spine: thoracic and lumbar spine normal to inspection, straight leg raise negative bilaterally, No thoraco-lumbar ROM limited and No lumbar spinal tenderness Skin Lesions: no lesions Rashes: no rashes Wounds: no wounds Neuro General: oriented to person, oriented to place, patient oriented x3, CN's II-XI intact bilaterally and No confusion Cranial nerves: Yes Equal, round and reactive pupils present and Yes Normal accommodation reflex present Cognition (Neuro): normal cognition Speech: No Abnormal speech present Gait exam (Neuro): Normal gait present Motor exam (neuro): 5/5 motor strength present throughout Extrem Right upper extremity: full ROM; no cyanosis Left upper extremity: full ROM; no cyanosis Right lower extremity: no edema Left lower extremity: no edema Psych Appearance: grossly normal Mental Status: mental status grossly normal Affect: normal affect Attitude: cooperative Thought process: Normal thought process present Coding Level of Care Code Est Pt Prev Care 18-39y(98323) Diagnoses Annual physical exam Z00.00 Screening for diabetes mellitus (DM) Z13.1 Family history of breast cancer in first degree relative Z80.3 Additional Codes PHQ-9 - 43757 - PHQ-9 Billing: Yes ([id number]) LOUIE-7 Assessment Billing - LOUIE-7 Assessment Tool: LOUIE-7 Assessment [id number] ([id number]) Assessment & Plan Assessment & Plan (1) Annual physical exam: Code(s): Z00.00 - Encounter for general adult medical examination without abnormal findings Category: Medical Plan: As per HPI (2) Screening for diabetes mellitus (DM): Code(s): Z13.1 - Encounter for screening for diabetes mellitus Category: Medical Plan: As per HPI (3) Family history of breast cancer in first degree relative: Comment: mother and mat GM Code(s): Z80.3 - Family history of malignant neoplasm of breast Category: Medical Plan: Patient's mother and grandmother both had breast cancer. Patient is requesting breast MRI is due to her strong family history of breast cancer Orders: Orders MR breast BI wo con Today Z80.3 - Family history of malignant neoplasm of breast Comprehensive [place]. Panel Fast Today Z13.1 - Encounter for screening for diabetes mellitus Complete Blood Count no Diff Today Z13.1 - Encounter for screening for diabetes mellitus
[2025-02-16 11:58] VITALS: BP 100/60; PULSE 73; TEMP 36.3; O2SAT 100; BMI 28.3
--- OUTSIDE RECORDS SUMMARY | 2025-02-16 13:01 | XMS_ITS | Clinical Summary ---
Author Organization [facility] & [facility] lin Address [address] [place] [address] Care Team Providers Care Perfect Bind Machine Operator Name Role Phone No, Pcp TOOL GRINDER OPERATOR EXTERNAL Primary Care Provider Unavailabl e Allergies No [...] Adults 18 yrs or above (or HM Modifier)([facility]) 10/04/2003 Hepatitis C Virus Infection in Adolescents and Adults: Screening (or Modifier) ([facility]) 10/04/2003 SDOH Screening Reminder: Olivia perez for all adults ([facility]) 10/04/2003 Tobacco Smoking Cessation: i n Adults excluding Women: Behavioral and Pharmacotherapy Interventions ([facility]) 10/04/2003 DTaP/Tdap/Td Vaccines ([facility]) (1 - Tdap) 2004 Cervical Cancer Screenin 1-65 yrs of age (or Modifier) 2006 Cervical Cancer Screening: P ap every 3 yrs pts age 21-65 2006 Cervical Cancer: Pap Screeni ng with Modifier timing ([facility]) 2006 Cervical Cancer: hrHPV alone or with cotesting Pap for Pts 30-65yrs screening every 5yrs ([facility] ) 2006 COVID-19 Vaccine Screening: Initial Series and Booster Status ([facility]) ( - 2023- season) 2024 Flu Vaccination: [...] topic Medical Devices Not on file Insurance [facility] Care Teams Perfect Bind Machine Operator Relationship Specialty Start Date End Date No, Pcp, TOOL GRINDER OPERATOR EXTERNAL N/A Do not use PCP - General 08/31/16
== END 2025-02-16 12:24 | disposition home or self-care (01) ==
LOC: HO.HMCH 11:31
PROVIDERS: PCP Physician Assistant; Visit Provider Physician Assistant
DX: Z00.00 Encounter for general adult medical examination without abnormal findings (principal); Z13.1 Encounter for screening for diabetes mellitus; Z80.3 Family history of malignant neoplasm of breast

== ENCOUNTER → 2025-02-16 11:30 | Outpatient (BNVA) | payer OTHER, SELFPAY | PROVIDERS: PCP Physician Assistant; Visit Provider Physician Assistant | DX: Z00.00 Encounter for general adult medical examination without abnormal findings (principal); Z80.3 Family history of malignant neoplasm of breast | CPT/HCPCS: 96127; 99395 ==

== ENCOUNTER 2025-03-28 07:14 | Outpatient (REF) | payer OTHER, SELFPAY ==
--- OUTSIDE RECORDS SUMMARY | 2025-03-28 07:17 | XMS_ITS | Clinical Summary ---
Author Organization [facility] [employer] & [facility] lin Address [address] [place] [address] Care Team Providers Care Coat Examiner Name Role Phone No, Pcp INFORMATION ASSURANCE ANALYST Primary Care Provider Unavailabl e Allergies No [...] Adults 18 yrs or above (or HM Modifier)([facility]) 10/04/2003 Hepatitis C Virus Infection in Adolescents and Adults: Screening (or Modifier) ([facility]) 10/04/2003 SDOH Screening Reminder: Olivia perez for all adults ([facility]) 10/04/2003 Tobacco Smoking Cessation: i n Adults excluding Women: Behavioral and Pharmacotherapy Interventions ([facility]) 10/04/2003 DTaP/Tdap/Td Vaccines ([facility]) (1 - Tdap) 2004 Cervical Cancer Screenin 1-65 yrs of age (or Modifier) 2006 Cervical Cancer Screening: P ap every 3 yrs pts age 21-65 2006 Cervical Cancer: Pap Screeni ng with Modifier timing ([facility]) 2006 Cervical Cancer: hrHPV alone or with cotesting Pap for Pts 30-65yrs screening every 5yrs ([facility] ) 2006 Flu Vaccination: Yearly for ages 18mos through 64 years (or Modifier)([facility] ) 01/23/2025 COVID-19 Vaccine Screening: Initial Series and Booster Status ([facility]) (2023- season) 2025 Zoster/Shingles Vaccine Seri es Screening: Adults aged 18+ yrs (or HM Modifiers)([facility] ) (1 of 2) 10/04/2035 Pneumococcal Vaccination Scr eening: Pts 0-19 & 19-49 yrs of age ([facility] ) Aged Out No longer eligible based on patient's age to complete this topic Medical Devices Not on file Insurance [facility] [employer] Care Teams Coat Examiner Relationship Specialty Start Date End Date No, Pcp, INFORMATION ASSURANCE ANALYST N/A Do not use PCP - General 08/31/16
[2025-03-28 08:13] LABS: Hematocrit 42.3 % (37.0-47.0); Hemoglobin 14.2 g/dl (12.0-16.0); Mean Corpuscular HGB Conc 33.6 g/dl (31.0-35.0); Mean Corpuscular Hemoglobin 29.6 pg (27.0-33.0); Mean Corpuscular Volume 88.1 fL (80.0-98.0); NRBC Abs Auto 0.000 X10*3/uL (0.0-0.012); NRBC Pct Auto 0.0 /100WBC (0.0-0.2); Platelet Count 270 X10*3/uL (160-400); Red Blood Count 4.80 X10*6/uL (4.20-5.50); White Blood Count 5.6 X10*3/uL (4.8-10.8)
[2025-03-28 08:48] LABS: Alanine Aminotransferase 9 U/L (0-31); Albumin Level 4.2 g/dL (3.5-5.0); Alkaline Phosphatase 28 U/L (39-117); Anion Gap 10 (12-20); Aspartate Amino Transferase 14 U/L (5-31); Blood Urea Nitrogen 11 mg/dL (9-16); Calcium 8.6 mg/dL (8.4-10.2); Carbon Dioxide 26 mmol/L (22-29); Chloride 109 mmol/L (96-108); Estimated Glomerular Filt Rate > 60; Potassium 4.5 mmol/L (3.3-5.1); Sodium 140 mmol/L (135-145); Total Protein 6.6 g/dL (6.5-8.0)
== END 2025-03-28 07:15 | disposition home or self-care (01) ==
LOC: HO.LAB 07:14
PROVIDERS: PCP Physician Assistant; Visit Provider Physician Assistant
DX: Z13.1 Encounter for screening for diabetes mellitus (principal)
CPT/HCPCS: 36415; 80053; 85027

== ENCOUNTER → 2025-06-17 13:42 | Outpatient (BNV) | payer OTHER, SELFPAY | PROVIDERS: PCP Physician Assistant; Visit Provider Internal Medicine | DX: Z80.3 Family history of malignant neoplasm of breast (principal) | CPT/HCPCS: 77049 ==

== ENCOUNTER 2025-06-17 13:43 | Outpatient (REF) | payer OTHER, SELFPAY ==
--- NOTE | ~2025-06-17 | MR_ITS ---
EXAMINATION: MR BREAST WITHOUT AND WITH CONTRAST, BILATERAL CLINICAL INFORMATION: High risk strong family history of breast cancer. COMPARISON: Comparison is made with relevant prior imaging. TECHNIQUE: MR imaging of the breast was performed using T1, T2 and fat saturated techniques. Dynamic multiphase imaging was also performed after the administration of intravenous gadolinium contrast agent. Computer generated 3D reconstruction and enhancement kinetic analysis was ulitized by the radiologist in the interpretation of this examination. FINDINGS: Breast composition: Heterogeneous fibroglandular breast tissue Background parenchymal enhancement: Moderate LEFT BREAST: No suspicious enhancing masses or areas of non mass enhancement. No axillary or internal mammary adenopathy. RIGHT BREAST: No suspicious enhancing masses or areas of non mass enhancement. No axillary or internal mammary adenopathy. Other: 15 x 10 mm oval T2 hyperintense mass/area seen in the left upper abdomen series 2 image 52/68 difficult to discern if this is part of an artifact as there are surrounding and overlying artifacts and other surrounding organs are obscured by artifact. Consider cross-sectional imaging of the abdomen for clarification. This area is not well seen on other MR series images. Limited views of the chest and abdomen are otherwise unremarkable. MR/MR breast BI wo/w con IMPRESSION: 1. No MRI evidence of malignancy bilateral breasts. 2. 15 x 10 mm oval T2 hyperintense mass versus artifact versus bowel loop in the upper left abdomen is not well defined or visualized on these limited images and surrounding organs are not clearly seen due to overlying artifact. Cross sectional imaging of the abdomen could be considered for clarification. These results and recommendations were sent via secure target text to Kevin Ingram. ASSESSMENT: LEFT BREAST: BI-RADS 1-Negative RIGHT BREAST: BI-RADS 1-Negative RECOMMENDATIONS: Yearly screening mammography Yearly Breast MRI screening surveillance. Electronically signed by: Belinda Maya DO 06/19/2025 02:21 PM [facility]
--- OUTSIDE RECORDS SUMMARY | 2025-06-17 13:45 | XMS_ITS | Clinical Summary ---
Author Organization [facility] Address [address] [place] [address] Care Team Providers Care Forming Acid Dumper Name Role Phone Unavailable Primary Care Provider Unavailabl e Social History Tobacco Use Types Packs/Day Years Used Date Smoking Tobacco: Never Assessed Comments Unknown Sex and Gender Information Value Date Recorded Sex Assigned at Not on file Legal Sex Female 5:43 PM EST Gender Identity Not on file Sexual Orientation Not on file Plan of Treatment Not on file
== END 2025-06-17 13:44 | disposition home or self-care (01) ==
LOC: HO.MRI 13:43
PROVIDERS: PCP Physician Assistant; Visit Provider Physician Assistant
DX: Z12.39 Encounter for other screening for malignant neoplasm of breast (principal); Z80.3 Family history of malignant neoplasm of breast
CPT/HCPCS: 77049; A9585